=== PATIENT | female | born 1960 | race African-American/Black ===

== ENCOUNTER 2016-05-12 07:07 | Day surgery (SDC) | payer OTHER ==
--- NOTE | ~2016-05-12 | EGD ---
EGD REPORT [facility] [address] [address] NAME: YESICA REEVES : 56 STATUS : REG [facility]#: [id number] AGE: 55 ADM/REG DATE : 05/12/16 MR#: [id number] REPORT SERV DATE: 05/12/16 DICTATED BY: BEN SILVA DATE: 05/12/16 REPORT STATUS : Draft TRANSCRIBED BY: [facility] DATE: 05/12/16 Endoscopy Center Patient Name: Yesica Reeves Date of : 1960 Attending MD: BEN SILVA MD Procedure Date No Time: 05/12/2016 Procedure: Upper GI endoscopy Indications: Follow-up of acute gastric ulcer Referring MD: AUGUSTINA PAZ Medicines: See the Anesthesia note for documentation of the administered medications Complications: No immediate complications. Procedure: Pre-Anesthesia Assessment: - ASA Grade Assessment: III - A patient with severe systemic disease. After obtaining informed consent, the endoscope was passed under direct vision. Throughout the procedure, the patient's blood pressure, pulse, and oxygen saturations were monitored continuously. The GIF [id number] was introduced through the mouth, and advanced to the second part of duodenum. The upper GI endoscopy was accomplished without difficulty. The patient tolerated the procedure well. Findings: Sutures noted in duodenal bulb Mild inflammation was found in the gastric antrum. Biopsies were taken with a cold forceps for histology. The cardia and gastric fundus were normal on retroflexion. A small hiatus hernia was present. Impression: - Sutures noted in duodenal bulb - Gastritis. Biopsied. - Hiatus hernia. Recommendation: - Patient has a contact number available for emergencies. The signs and symptoms of potential delayed complications were discussed with the patient. Return to normal activities tomorrow. Written discharge instructions were provided to the patient. - Regular diet. - Continue present medications. - FOR YOUR BIOPSY RESULTS: Please go to [email or web address] and register to receive your results via the portal. Your biopsy results will be EGD REPORT [address] [address] NAME: YESICA REEVES : [birth year] STATUS : REG [facility] [place] PAT#: [id number] AGE: 55 ADM/REG DATE : 05/12/16 MR#: [id number] REPORT SERV DATE: 05/12/16 DICTATED BY: BEN SILVA DATE: 05/12/16 REPORT STATUS : Draft TRANSCRIBED BY: [employer] DATE: 05/12/16 posted there in about 7 to 10 days. IF you do not see result in 10 days, call office. Procedure Code(s): --- Professional --- 93758, Esophagogastroduodenoscopy, flexible, transoral; with biopsy, single or multiple Diagnosis Code(s): --- Professional --- K29.70, Gastritis, unspecified, without bleeding K44.9, Diaphragmatic hernia without obstruction or gangrene K25.3, Acute gastric ulcer without hemorrhage or perforation CPT copyright 2013 [employer]. All rights reserved. The codes documented in this report are preliminary and upon motor vehicle or caravan salesperson review may be revised to meet current compliance requirements. Ben Silva MD BEN SILVA MD 05/12/2016 9:00 AM This report has been signed electronically. Number of Addenda: 0 Note Initiated On: 05/12/2016 8:43 AM Scope Withdrawal Time 0 hours 0 minutes 0 seconds
[~2016-05-12 07:07] MED LIST: *UNABLE1; AUG875 PO; BLOOD PRESSURE RX PO; BYSTOLIC10 MG PO; C5 PO; COREG25 PO; CYTO5 PO; DIABET2.5 PO; DIOVAN HC2 PO; DIOVAN HCT320 MG/25 PO; EXFORGE1 TA3 PO; JANUMET XR 50-1 EACH PO; JANUMET1 TAB PO; K-TABS10 MEQ PO; LEVOTHYROXIN112 MCG PO; LIOR10 PO; MAG-SR535 MG PO; MOBIC15 MG PO; NEXIUM20 M1 PO; NORV10 PO; ORPHENADRINE100 MG PO; PCET PO; PERCOCET1 TA2 PO; SYN.05 PO; SYN1 PO; TEKTURNA HCT1 TA3 PO; VICODINTAB PO; XANAX2 MG PO; [UNRECOGNIZED DRUG - OTHER] PO
== END 2016-05-12 23:59 | disposition home or self-care (01) ==
LOC: DMU 07:07
PROVIDERS: Internal Medicine Gastroenterology
PROC: 0DB68ZX Excision of Stomach, Via Natural or Artificial Opening Endoscopic, Diagnostic (ICD-10-PCS; principal; 2016-05-12 09:00)
DX: K25.3 Acute gastric ulcer without hemorrhage or perforation (principal); K29.70 Gastritis, unspecified, without bleeding; K44.9 Diaphragmatic hernia without obstruction or gangrene; E03.9 Hypothyroidism, unspecified; E11.9 Type 2 diabetes mellitus without complications; F17.210 Nicotine dependence, cigarettes, uncomplicated; F41.9 Anxiety disorder, unspecified; I10 Essential (primary) hypertension; Z88.1 Allergy status to other antibiotic agents; Z88.8 Allergy status to other drugs, medicaments and biological substances; Z79.891 Long term (current) use of opiate analgesic; Z79.899 Other long term (current) drug therapy; Z96.653 Presence of artificial knee joint, bilateral; Z90.49 Acquired absence of other specified parts of digestive tract; Z98.890 Other specified postprocedural states
CPT/HCPCS: 82962; 88305